=== PATIENT | female | born 1995 | race Caucasian/White ===

== ENCOUNTER 2017-10-02 11:28 | Inpatient (IN) | payer OTHER ==
[2017-10-02 12:37] VITALS: BMI 35.4
--- NOTE | 2017-10-02 15:44 | HP ---
Admission [facility] - [facility] Chief Complaint: REHAB TX FOR MARIJUANA DEPENDENCE Allergies/Adverse Reactions: Allergies Allergy/AdvReac Type Severity Reaction Status Date / Time No Known Allergies Allergy Verified 09/10/16 19:00 History of Present Illness: 22 Y/O H/FEMALE WITH A HX OF MARIJUANA DEPENDENCE SEEKING REHAB TX Exam Limitations: No Limitations - Ebola screening Have you traveled outside of the country in the last 21 days: No Have you had contact with anyone from an Ebola affected area: No Have you been sick,other than usual withdrawal symptoms: No Do you have a fever: No - Review of Systems Constitutional: Loss of Appetite EENT: reports: Tearing, Nose Congestion, Dental Problems (CAVITIES) Respiratory: reports: Shortness of Breath (HX ASTHMA), Wheezing Cardiac: reports: No Symptoms Reported GI: reports: No Symptoms Reported : reports: No Symptoms Reported Musculoskeletal: reports: Back Pain Integumentary: reports: No Symptoms Reported Neuro: reports: No Symptoms reported, Headache Endocrine: reports: No Symptoms Reported Hematology: reports: Anemia Psychiatric: reports: Orientated x3 Other Systems: Reviewed and Negative Patient History - Patient Medical History Hx Anemia: Yes ( PERIOD) Hx Asthma: Yes (ALBUTEROL IH PRN) Hx Cancer: No Hx Cardiac Disorders: No Hx Hypertension: No Hx Hypercholesterolemia: No HX Cerebrovascular Accident: No Hx Seizures: No Hx Diabetes: No Hx Genitourinary Disorders: Yes (UTI TX) Hx Sexually Transmitted Disorders: Yes (HX CHLAMYDIA TX) Hx Renal Disease (ESRD): No Hx Thyroid Disease: No Hx Human Immunodeficiency Virus (HIV): No (NEGATIVE HX) Hx Hepatitis C: No Hx Depression: No Hx Suicide Attempt: No (DENIES) Hx Bipolar Disorder: No Hx Schizophrenia: No - Patient Surgical History Past Surgical History: Yes Other Surgical History: D & C X 3 IN ( 2012,2016 X2) Anesthesia Reaction: No - Smoking Cessation Smoking history: Never smoked Family Disease History - Family Disease History Family Disease History: Diabetes: Grandparent (HYPERCHOLESTEROLEMIA-GM), Respiratory: Mother (ASTHMA), Other: Grandparent Admission Physical Exam [facility] - Vital Signs Vital Signs: Vital Signs - 24 hr 10/02/17 12:34 Temperature 97.8 F Pulse Rate 70 Respiratory 18 Rate Blood Pressure 133/77 - Physical General Appearance: Yes: Obese, Anxious HEENTM: Yes: EOMI, Normocephalic, AALIYAH, Pharynx Normal Respiratory: Yes: Chest Non-Tender, Lungs Clear, Normal Breath Sounds, No Respiratory Distress Neck: Yes: No masses,lesions,Nodules, Supple, Trachea in good position Breast: Yes: Breast Exam Deferred Cardiology: Yes: Regular Rhythm, Regular Rate, S1, S2 Abdominal: Yes: Normal Bowel Sounds, Non Tender, Flat Genitourinary: Yes: Other (N/C) Musculoskeletal: Yes: full range of Motion, Gait Steady Extremities: Yes: Normal Range of Motion, Non-Tender 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, Fully Oriented, Alert, Motor Strength 5/5 Integumentary: Yes: Dry, Warm Lymphatic: Yes: Within Normal Limits - Diagnostic (1) Cannabis dependence, uncomplicated Current Visit: Yes Status: Chronic (2) History of asthma Current Visit: Yes Status: Chronic Cleared for Admission [facility] - Detox or Rehab Claeared for Rehab Admission: Yes [facility] Breath Alcohol Content Breath Alcohol Content: 0 Urine Pregancy Test - Result Urine Test Results: Negative- NO Line Present Urine Drug Screen - Results Drug Screen Negative: No Urine Drug Screen Results: THC-Marijuana Inpatient Rehab Admission - Initial Determination Are CD services needed?: Yes Free of communicable disease: Yes Not in need of hospitalization: Yes - Rehab Admission Criteria Patient is meeting Inpatient Rehab admission criteria:: Yes
[2017-10-02] MEDS ORDERED: P-EPHED 60MG/TRIPROLIDI 2.5MG TABLET PO PRN (16:25)
[2017-10-02] MEDS ORDERED: MAGNESIUM CITRATE 300 ML BOTTLE PO PRN (16:25)
[2017-10-02] MEDS ORDERED: MENTHOL/PHENOL 1 EACH UD MM PRN (16:25)
[2017-10-02] MEDS ORDERED: IBUPROFEN 400 MG TABLET (FP) PO PRN (16:25)
[2017-10-02] MEDS ORDERED: guaiFENesin/D-METHORPHAN HB 10 ML UNIT-DOSE CUPS PO PRN (16:25)
[2017-10-02] MEDS ORDERED: ACETAMINOPHEN 325 MG TABLET (FP) PO PRN (16:25)
[2017-10-02] MEDS ORDERED: LOPERAMIDE HCL 2 MG CAPSULE PO PRN (16:25)
[2017-10-02] MEDS ORDERED: MAGNESIUM HYDROX 2400MG/30ML ORAL SUSPENSION 30 ML CUP PO PRN (16:25)
[2017-10-02] MEDS ORDERED: MAG HYDROX/AL HYDROX/SIMETH 30 ML UNIT-DOSE CUP PO PRN (16:25)
[2017-10-02] MEDS ORDERED: ALBUTEROL SO4 18 GM HFA INHALER IH PRN (16:27)
[2017-10-02] MEDS: THIAMINE HCL 100 MG TABLET (FP) PO SCH (21:29)
[2017-10-03 03:15] LABS: URINE APPEARANCE SLCLOUDY; URINE BILIRUBIN NEGATIVE (NEGATIVE); URINE BLOOD NEGATIVE (NEGATIVE); URINE COLOR YELLOW; URINE GLUCOSE (UA) NEGATIVE (NEGATIVE); URINE KETONE NEGATIVE (NEGATIVE); URINE LEUK ESTERASE NEGATIVE (NEGATIVE); URINE NITRITE NEGATIVE (NEGATIVE); URINE PROTEIN NEGATIVE (NEGATIVE); URINE UROBILINOGEN NEGATIVE mg/dL (0.2-1.0)
[2017-10-03] MEDS: PRENATAL VITAMINS W/ FOLIC ACID TABLET (FP) PO SCH (09:45)
[2017-10-03 15:07] LABS: HEMATOCRIT 41.8 % (32.4-45.2); HEMOGLOBIN 13.5 GM/dL (10.7-15.3); MCH 29.7 pg (25.7-33.7); MCHC 32.4 g/dl (32.0-36.0); MEAN CELL VOLUME 91.6 fl (80-96); PLATELET COUNT 275 K/MM3 (134-434); RBC 4.57 M/mm3 (3.60-5.2); RDW 14.5 % (11.6-15.6); WHITE BLOOD COUNT 9.1 K/mm3 (4.0-10.0)
[2017-10-03 15:13] LABS: CHLORIDE 104 mmol/L (98-107); POTASSIUM 4.1 mmol/L (3.5-5.1); SODIUM 137 mmol/L (136-145)
[2017-10-03 15:19] LABS: ALBUMIN 3.5 g/dl (3.4-5.0); ALK PHOS 68 U/L (45-117); ANION GAP 9 (8-16); BILIRUBIN,TOTAL 1.1 mg/dL (0.2-1.0); BLOOD UREA NITROGEN 10 mg/dL (7-18); CALCIUM 8.6 mg/dL (8.5-10.1); CO2 24 mmol/L (21-32); CREATININE 0.7 mg/dL (0.55-1.02); GLUCOSE,RANDOM 88 mg/dL (74-106); SGOT/AST 12 U/L (15-37); SGPT/ALT 19 U/L (12-78); TOT PROT 6.8 g/dl (6.4-8.2)
--- NOTE | 2017-10-03 15:19 | EKG ---
Test Reason : Blood Pressure : / mmHG Vent. Rate : 070 BPM Atrial Rate : 070 BPM P-R Int : 162 ms QRS Dur : 086 ms QT Int : 414 ms P-R-T Axes : 049 057 055 degrees QTc Int : 447 ms NORMAL SINUS RHYTHM WITH SINUS ARRHYTHMIA NORMAL ECG NO PREVIOUS ECGS AVAILABLE Confirmed by Casper Cosby MD ([id number]) on 10/03/2017 3:18:43 PM Referred By: Confirmed By:Casper Cosby MD
[2017-10-03 18:36] LABS: SICKLE CELL SCREEN NEGATIVE (NEGATIVE)
[2017-10-03] MEDS: THIAMINE HCL 100 MG TABLET (FP) PO SCH (21:30)
[2017-10-04] MEDS: PRENATAL VITAMINS W/ FOLIC ACID TABLET (FP) PO SCH (10:15)
--- NOTE | 2017-10-04 13:58 | HP ---
Psychiatrist Admission - Data Date of interview: 10/04/17 Admission source: Probation office. Identifying data: This is the first admsiion to [address] [place] [address] for this 22 years old H sincle female mother of 2 yo daughter(child resides with the patient's mother).Patient resides with family,works in [employer]. Medical History: H/O UTI,H/O BA. Psychiatric History: Denies psychiatric history. Physical/Sexual Abuse/Trauma History: No history of sexual/physical abuse reported. Vital Signs: Vital Signs - 24 hr 10/04/17 07:36 Temperature 98.2 F Pulse Rate 69 Respiratory 18 Rate Blood Pressure 141/85 Allergies/Adverse Reactions: Allergies Allergy/AdvReac Type Severity Reaction Status Date / Time No Known Allergies Allergy Verified 10/02/17 16:19 Date of last physical exam: 10/02/17 Concur with the findings of this exam: Yes - Substance Abuse/Tx History Hx Alcohol Use: No Hx Substance Use: No (marijuana since 15 yo,6 blunts daily) Hx Substance Use Treatment: Yes (never being in drug treatment before) Mental Status Exam - Mental Status Exam Alert and Oriented to: Time, Place, Person Cognitive Function: Grossly Intact Patient Appearance: Well Groomed Mood: Sad Affect: Labile Patient Behavior: Cooperative Speech Pattern: Clear Voice Loudness: Normal Thought Process: Goal Oriented Thought Disorder: Not Present Hallucinations: Denies Suicidal Ideation: Denies Homicidal Ideation: Denies Insight/Judgement: Fair Sleep: Fair Appetite: Good Gait/Station: Normal Psychiatric Findings - Problem List ([place] 1, 2,3) (1) [place] vaginitis Current Visit: Yes Status: Resolved (2) Cannabis dependence, uncomplicated Current Visit: Yes Status: Chronic (3) History of asthma Current Visit: Yes Status: Chronic - Initial Treatment Plan Initial Treatment Plan: Will monitor progress.
[2017-10-04] MEDS: THIAMINE HCL 100 MG TABLET (FP) PO SCH (21:33)
[2017-10-05] MEDS: PRENATAL VITAMINS W/ FOLIC ACID TABLET (FP) PO SCH (10:19)
[2017-10-05] MEDS ORDERED: COLLOIDAL OATMEAL 1 BAR EACH TP PRN (13:38)
[2017-10-05] MEDS: THIAMINE HCL 100 MG TABLET (FP) PO SCH (21:21)
[2017-10-06] MEDS: PRENATAL VITAMINS W/ FOLIC ACID TABLET (FP) PO SCH (09:51)
[2017-10-06] MEDS: THIAMINE HCL 100 MG TABLET (FP) PO SCH (21:24)
[2017-10-07] MEDS: PRENATAL VITAMINS W/ FOLIC ACID TABLET (FP) PO SCH (10:16)
[2017-10-07] MEDS: THIAMINE HCL 100 MG TABLET (FP) PO SCH (21:22)
[2017-10-08] MEDS: PRENATAL VITAMINS W/ FOLIC ACID TABLET (FP) PO SCH (09:51)
[2017-10-08] MEDS: THIAMINE HCL 100 MG TABLET (FP) PO SCH (21:33)
[2017-10-09] MEDS: PRENATAL VITAMINS W/ FOLIC ACID TABLET (FP) PO SCH (09:43)
[2017-10-09] MEDS: THIAMINE HCL 100 MG TABLET (FP) PO SCH (21:27)
[2017-10-10] MEDS: PRENATAL VITAMINS W/ FOLIC ACID TABLET (FP) PO SCH (10:28)
[2017-10-10] MEDS ORDERED: diphenhydrAMINE HCL 50 MG CAPSULE PO PRN (13:15)
[2017-10-10] MEDS: THIAMINE HCL 100 MG TABLET (FP) PO SCH (21:30)
[2017-10-11] MEDS: PRENATAL VITAMINS W/ FOLIC ACID TABLET (FP) PO SCH (09:55)
[2017-10-11] MEDS: THIAMINE HCL 100 MG TABLET (FP) PO SCH (21:28)
[2017-10-12] MEDS: PRENATAL VITAMINS W/ FOLIC ACID TABLET (FP) PO SCH (10:02)
[2017-10-12] MEDS: THIAMINE HCL 100 MG TABLET (FP) PO SCH (21:19)
[2017-10-13 07:08] VITALS: BP 134/90; PULSE 76; TEMP 97.4
== END 2017-10-13 06:30 | disposition home or self-care (01) | DRG 772 ==
LOC: YASAS 11:28 → Y3E 16:34
PROVIDERS: ADMIT Psychiatry & Neurology Psychiatry; ATTEND Psychiatry & Neurology Psychiatry
PROC: HZ42ZZZ Group Counseling for Substance Abuse Treatment, Cognitive-Behavioral (ICD-10-PCS; principal; 2017-10-02)
DX: F12.20 Cannabis dependence, uncomplicated (principal); B37.3 Candidiasis of vulva and vagina; Z87.09 Personal history of other diseases of the respiratory system
CPT/HCPCS: 36415; 80053; 81003; 85027; 85660; 86593; 93005; 93010

== ENCOUNTER 2018-01-26 01:49 | Emergency (ER) | payer OTHER ==
[2018-01-26 02:21] VITALS: BP 139/74; PULSE 82; TEMP 97.9; BMI 36.3
--- NOTE | 2018-01-26 02:37 | PDOC ---
Attending Attestation - HPI HPI: 01/26/18 03:17 The patient is a 22 year old female with a significant PMH of asthma who presents to the emergency department with 2 days of cold-like symptoms including cough, nasal congestion, and sore throat and 1 day of left ear pain. She describes her initial left ear pain as acute in onset last night with radiation to the left side of her face. She states she used a Q-tip to clean her ear out and subsequently developed a pressure like sensation in her left ear , 10/10 in severity. The patient notes her child has had similar symptoms at home. The patient denies chest pain or shortness of breath. She denies lightheadedness, headache, dizziness, or blurry vision. Allergies: NKA PCP: Dr. August Javed <Reese Patrick - Last Filed: 01/26/18 03:17> - Resident Resident Name: Martita Márquez - ED Attending Attestation I have performed the following: I have examined & evaluated the patient, The case was reviewed & discussed with the resident, I agree w/resident's findings & plan, Exceptions are as noted - Physicial Exam PE: 01/30/18 19:43 *Physical Exam General Appearance: Yes: Appropriately Dressed. No: Apparent Distress, Intoxicated HEENT: positive: EOMI, AALIYAH, Normal ENT Inspection, Normal Voice, TMs Normal, Pharynx Normal. negative: Pale Conjunctivae, Photophobia, Scleral Icterus (R), Scleral Icterus (L) Neck: positive: Trachea midline, Normal Thyroid, Supple. negative: Tender, Rigid, Carotid bruit, Stridor, Lymphadenopathy (R), Lymphadenopathy (L), Thyromegaly Respiratory/Chest: positive: Lungs Clear, Normal Breath Sounds. negative: Chest Tender, Respiratory Distress, Accessory Muscle Use, Labored Respiration, RES, Crackles, Rales, Rhonchi, Stridor, Wheezing, Dullness Cardiovascular: positive: Regular Rhythm, Regular Rate, S1, S2. negative: Edema , JVD, Murmur, Bradycardia, Tachycardia Vascular Pulses: Dorsalis-Pedis (R): 2+, Doralis-Pedis (L): 2+ Gastrointestinal/Abdominal: positive: Normal Bowel Sounds, Flat, Soft. negative : Tender, Organomegaly, Pulsatile Mass, Increased Bowel Sounds, Decreased BS, Distended, Guarding, Rebound, Hernia, Hepatomegaly, Spleenomegaly Lymphatic: negative: Adenopathy, Tenderness Musculoskeletal: positive: Normal Inspection. negative: CVA Tenderness, Decreased Range of Motion Extremity: positive: Normal Capillary Refill, Normal Inspection, Normal Range of Motion, Pelvis Stable. negative: Tender, Pedal Edema, Swelling, Erythema Integumentary: positive: Normal Color, Dry, Warm. 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 negative: EOM Palsy, Facial Droop, Sensory Deficit - Medical Decision Making 01/30/18 19:43 Pt treated and released <Julio Cesar Connelly - Last Filed: 01/30/18 19:43>
--- NOTE | 2018-01-26 02:37 | PDOC ---
History of Present Illness - General Chief Complaint: Ear Problem Stated Complaint: EARACHE,COUGH Time Seen by Provider: 01/26/18 02:26 History Source: Patient Exam Limitations: No Limitations - History of Present Illness Initial Comments: This is a 22 YOF with h/o well-controlled asthma who p/w 8/10 left ear pain as well as cold symptoms. The cold symptoms started with sore throat, congestion, and cough two days ago. Her child has been sick with the same symptoms at home. The left ear began itching tonight at about 9pm, and the patient felt like there was fluid in the ear canal, so she cleaned the ear out with water and a Q- tip. Soon after she cleaned it, the pain developed and has reached a 10/10 pressure in the left ear, similar to the ear infections she used to get as a child. She has had no recent ear infections. She notes that the pain is radiating to the left side of her face, but otherwise she denies any new symptoms (no fever, chills, nausea, vomiting, abnormal headache, vertigo, lightheadedness, blurry vision, or other symptoms. Past History - Past Medical History Allergies/Adverse Reactions: Allergies Allergy/AdvReac Type Severity Reaction Status Date / Time No Known Allergies Allergy Verified 01/26/18 02:19 Home Medications: Ambulatory Orders Albuterol Sulfate Inhaler - [Ventolin HFA Inhaler -] 2 inh PO Q4H PRN #1 inhaler 08/28/16 Amoxicillin - [Amoxicillin 500mg Capsule -] 1,000 mg PO TID #21 capsule Anemia: Yes ( PERIOD) Asthma: Yes (ON MDI PRN) Cancer: No Cardiac Disorders: No CVA: No COPD: No Diabetes: No GI Disorders: No Disorders: No HTN: No Hypercholesterolemia: No Kidney Stones: No Seizures: No Thyroid Disease: No - Reproductive History PID: No - Suicide/Smoking/Psychosocial Hx Smoking History: Never smoked Have you smoked in the past 12 months: No Information on smoking cessation initiated: No Hx Alcohol Use: No Drug/Substance Use Hx: No Substance Use Type: None Hx Substance Use Treatment: Yes (never being in drug treatment before) Review of Systems - Review of Systems Able to Perform ROS?: Yes Constitutional: No: Chills, Fever, Unexplained wgt Loss HEENTM: Yes: Ear Pain (left), Nose Congestion, Throat Pain Respiratory: Yes: Cough. No: Shortness of Breath Cardiac (ROS): No: Chest Pain, Palpitations ABD/GI: No: Constipated, Diarrhea, Nausea, Vomiting : No: Burning, Dysuria Musculoskeletal: No: Back Pain, Neck Pain Integumentary: No: Bruising, Rash Neurological: Yes: Headache. No: Numbness, Tingling, Weakness, Dizziness Endocrine: No: Unexplained Weight Gain, Unexplained Weight Loss *Physical Exam - Vital Signs Last Vital Signs Temp Pulse Resp BP Pulse Ox 97.9 F 82 20 139/74 99 01/26/18 02:20 01/26/18 02:20 01/26/18 02:20 01/26/18 02:20 01/26/18 02:20 - Physical Exam General Appearance: Yes: Nourished, Appropriately Dressed, Mild Distress, Other (alert and oriented but uncomfortable appearing, intermittently wincing in pain , obese, conversive) HEENT: positive: EOMI, AALIYAH, Normal Voice, Hearing Grossly Normal, Other (right TM wnl, left TM is bulging with opaque appearing fluid behind it, with small amount of EAC erythema). negative: Scleral Icterus (R), Scleral Icterus (L), Nasal Congestion Neck: positive: Trachea midline, Supple. negative: Tender, Rigid Respiratory/Chest: positive: Lungs Clear, Normal Breath Sounds. negative: Respiratory Distress, Crackles, Rhonchi, Stridor, Wheezing Cardiovascular: positive: Regular Rhythm, Regular Rate. negative: Murmur Gastrointestinal/Abdominal: positive: Normal Bowel Sounds, Soft. negative: Tender, Organomegaly, Pulsatile Mass, Guarding Musculoskeletal: positive: Normal Inspection. negative: Decreased Range of Motion, Vertebral Tenderness Extremity: positive: Normal Capillary Refill, Normal Inspection, Normal Range of Motion. negative: Tender, Cyanosis Integumentary: positive: Normal Color, Dry, Warm. 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 Initial Vital Signs Temp Pulse Resp BP Pulse Ox 97.9 F 82 20 139/74 99 01/26/18 02:20 01/26/18 02:20 01/26/18 02:20 01/26/18 02:20 01/26/18 02:20 Exam: Left TM bulging and with opaque fluid, mild erythema DDX IBNLT: Otitis media (serous versus infectious), otitis externa (c/f malignant OE), zoster (c/f HSV oticus, [place] syndrome), trauma, tympanic membrane rupture, foreign body, headache W/U ordered: None TX ordered: Tylenol, Amoxicillin Reassessment: Patient notes pain much improved and she feels comfortable going home. The Pt has gotten significant relief of symptoms with ED medications. Workup is not concerning for emergency-level pathology at this time. The Pt is appropriate for discharge with close outpatient follow up. E-Rx is sent to her pharmacy for amoxicillin course and she is given a dose here in the ED. They are comfortable with this plan and will follow up with their PCP in 1-3 days. Specific return precautions are discussed and they will come back to the ER if necessary. *DC/Admit/Observation/Transfer Diagnosis at time of Disposition: Viral URI Otitis media Qualifiers: Otitis media type: unspecified Chronicity: acute Qualified Code(s): H66.90 - Otitis media, unspecified, unspecified ear - Discharge Dispostion Disposition: HOME Condition at time of disposition: Stable Decision to Admit order: No - Prescriptions Prescriptions: Amoxicillin - [Amoxicillin 500mg Capsule -] 1,000 mg PO TID #21 capsule - Referrals Referrals: August Javed MD [Primary Care Provider] - - Patient Instructions Printed Discharge Instructions: Middle Ear Infection Additional Instructions: You were seen in the ER for ear pain. We did an exam and were able to see evidence of an ear infection. We gave a dose of antibiotic here in the ER and are sending an electronic prescription to your pharmacy for a course of antibiotic. After our assessment, we do not believe there is a medical emergency at this time, and we believe it is safe to go home. Please moss picker the antibiotics from the pharmacy and take the whole course, whether or not the symptoms resolve. Take Motrin and Tylenol as you need them for pain. Please follow up with your regular PCP doctor in 1-3 days. Call their clinic as soon as possible, tell them you were seen in the ER, and tell them you need an appointment. If there are any new or worsening symptoms, please come back to the ER at any time (24 hours a day). If the symptoms appear severe or life- threatening, please call 911 to have an ambulance take you to the ER. - Post Discharge Activity
[2018-01-26] MEDS ORDERED: IBUPROFEN 400 MG TABLET (FP) PO ONE ×2 (02:38→03:02)
[2018-01-26] MEDS ORDERED: AMOXICILLIN 500 MG CAPSULE (FP) PO ONE (02:40)
[2018-01-26] MEDS ORDERED: AMOXICILLIN 500 MG CAPSULE (FP) ONE (03:02)
== END 2018-01-26 02:30 | disposition home or self-care (01) ==
LOC: JER 01:49
DX: H66.90 Otitis media, unspecified, unspecified ear (principal); J06.9 Acute upper respiratory infection, unspecified
CPT/HCPCS: 99282-25

== ENCOUNTER 2018-11-13 00:58 | Emergency (ER) | payer OTHER ==
[2018-11-13 01:15] VITALS: PULSE 60; BMI 38.0
--- NOTE | 2018-11-13 02:16 | PDOC ---
History of Present Illness - General Chief Complaint: Nausea/Vomiting Stated Complaint: VOMITING Time Seen by Provider: 11/13/18 02:16 - History of Present Illness Initial Comments: 11/13/18 05:04 23-year-old female complaining of nausea and vomiting with epigastric abdominal pain for the last 2 days. Patient reports she was unable to tolerate any by mouth for the last 2 days. Denies diarrhea, abdominal cramping, chest pain, dizziness, urinary symptoms. Past History - Past Medical History Allergies/Adverse Reactions: Allergies Allergy/AdvReac Type Severity Reaction Status Date / Time No Known Allergies Allergy Verified 11/13/18 01:09 Home Medications: Ambulatory Orders Albuterol Sulfate Inhaler - [Ventolin HFA Inhaler -] 2 inh PO Q4H PRN #1 inhaler 08/28/16 Amoxicillin - [Amoxicillin 500mg Capsule -] 1,000 mg PO TID #21 capsule Anemia: Yes ( PERIOD) Asthma: Yes (ON MDI PRN) Cancer: No Cardiac Disorders: No CVA: No COPD: No Diabetes: No GI Disorders: No Disorders: No HTN: No Hypercholesterolemia: No Kidney Stones: No Seizures: No Thyroid Disease: No - Reproductive History PID: No - Immunization History Immunization Up to Date: Yes - Suicide/Smoking/Psychosocial Hx Smoking History: Never smoked Have you smoked in the past 12 months: No Hx Alcohol Use: No Drug/Substance Use Hx: No Substance Use Type: None Hx Substance Use Treatment: Yes (never being in drug treatment before) Abd/GI Specific PMHX - Complaint Specific PMHX Hepatitis: No Pancreatitis: No Review of Systems - Review of Systems Able to Perform ROS?: Yes Is the patient limited Albanian proficient: No Constitutional: No: Symptoms Reported, See HPI, Chills, Diaphoresis, Fever, Loss of Appetite, Malaise, Night Sweats, Weakness, Weight Stable, Unintentional Wgt. Loss, Unexplained wgt Loss, Other HEENTM: No: Symptoms Reported, See HPI, Eye Pain, Blurred Vision, Tearing, Recent change in vision, Double Vision, Cataracts, Ear Pain, Ocular Prothesis, Ear Discharge, Nose Pain, Nose Congestion, Tinnitus, Nose Bleeding, Hearing Loss , Throat Pain, Throat Swelling, Mouth Pain, Dental Problems, Difficulty Swallowing, Mouth Swelling, Other ABD/GI: Yes: Nausea, Vomiting, Abdominal cramping. No: Symptoms Reported, See HPI, Abdominal Distended, Abd. Pain w/ defecation, Blood Streaked Bowels, Constipated, Diarrhea, Difficulty Swallowing, Poor Appetite, Poor Fluid Intake, Rectal Bleeding, Indigestion, Tarry Stools, Other : No: Symptoms Reported, See HPI, Burning, Dysuria, Discharge, Frequency, Flank Pain, Hematuria, Incontinence, Pain, Urgency, Testicular Mass, Testicular Swelling, Lesions, Testicular Pain, Other *Physical Exam - Vital Signs Last Vital Signs Temp Pulse Resp BP Pulse Ox 97.7 F 60 18 145/76 99 11/13/18 01:08 11/13/18 01:08 11/13/18 01:08 11/13/18 01:08 11/13/18 01:08 - Physical Exam General Appearance: Yes: Appropriately Dressed Respiratory/Chest: positive: Lungs Clear, Normal Breath Sounds Cardiovascular: positive: Regular Rhythm, Regular Rate Gastrointestinal/Abdominal: positive: Tender (epigastric area), Soft, Increased Bowel Sounds Musculoskeletal: positive: Normal Inspection. negative: CVA Tenderness Extremity: positive: Normal Capillary Refill, Normal Inspection, Normal Range of Motion Integumentary: positive: Normal Color, Dry, Warm Neurologic: positive: Fully Oriented, Alert Moderate Sedation - Procedure Monitoring Vital Signs: Procedure Monitoring Vital Signs Temperature 97.7 F 11/13/18 01:08 Pulse Rate 60 11/13/18 01:08 Respiratory Rate 18 11/13/18 01:08 Blood Pressure 145/76 11/13/18 01:08 O2 Sat by Pulse Oximetry (%) 99 11/13/18 01:08 ED Treatment Course - LABORATORY CBC & Chemistry Diagram: 11/13/18 02:24 11/13/18 02:24 Progress Note - Progress Note Progress Note: A: gastroenteritis P: cbc cmp IVF zofran pepcid Medical Decision Making - Medical Decision Making 11/13/18 05:09 patient is drinking water. no vomiting no abdominal pain. will d/c home. pending UA 11/13/18 05:31 UA negative, will d.c home *DC/Admit/Observation/Transfer Diagnosis at time of Disposition: Gastroenteritis - Discharge Dispostion Disposition: HOME - Referrals Referrals: August Javed MD [Primary Care Provider] - - Patient Instructions Printed Discharge Instructions: DI for Vomiting -- Adult Additional Instructions: drink plenty of fluids start a BRAT ( bananas, rice apples toast) follow up with your doctor return to the ER if symptoms worsen - Post Discharge Activity
--- NOTE | 2018-11-13 02:23 | PDOC ---
*Physical Exam - Vital Signs Last Vital Signs Temp Pulse Resp BP Pulse Ox 97.7 F 60 18 145/76 99 11/13/18 01:08 11/13/18 01:08 11/13/18 01:08 11/13/18 01:08 11/13/18 01:08 ED Treatment Course - LABORATORY CBC & Chemistry Diagram: 11/13/18 02:24 11/13/18 02:24 Medical Decision Making - Medical Decision Making 11/13/18 02:23 Patient seen by the advanced practice provider under my direct supervision. Ancillary testing reviewed as necessary. I agree with plan as outlined by the advanced practice provider. *DC/Admit/Observation/Transfer Diagnosis at time of Disposition: Gastroenteritis - Discharge Dispostion Disposition: HOME - Referrals Referrals: August Javed MD [Primary Care Provider] - - Patient Instructions Printed Discharge Instructions: DI for Vomiting -- Adult Additional Instructions: drink plenty of fluids start a BRAT ( bananas, rice apples toast) follow up with your doctor return to the ER if symptoms worsen - Post Discharge Activity
[2018-11-13] MEDS ORDERED: ONDANSETRON 4 MG/2 ML VIAL ONE (02:26)
[2018-11-13] MEDS ORDERED: FAMOTIDINE 20 MG/50 ML IVPB 20 MG/50 ML MG IVPB ONE ×2 (02:27→02:29)
[2018-11-13] MEDS ORDERED: ONDANSETRON 4 MG/2 ML VIAL IVPB ONE (02:29)
[2018-11-13] MEDS ORDERED: SODIUM CHLORIDE 0.9% 500 ML INFUS.BAG IV ONE (02:29)
[2018-11-13 02:34] LABS: BASO % 0.5 % (0-2.0); EOS % 0.3 % (0-4.5); HEMATOCRIT 43.5 % (32.4-45.2); HEMOGLOBIN 15.2 GM/dL (10.7-15.3); LYMPH % 15.3 % (8-40); MCH 31.5 pg (25.7-33.7); MCHC 34.9 g/dl (32.0-36.0); MEAN CELL VOLUME 90.2 fl (80-96); MEAN PLT VOLUME 8.8 fl (7.5-11.1); MONO % 7.4 % (3.8-10.2); NEUT % 76.5 % (42.8-82.8); PLATELET COUNT 389 K/MM3 (134-434); RBC 4.83 M/mm3 (3.60-5.2); RDW 13.3 % (11.6-15.6); WHITE BLOOD COUNT 13.8 K/mm3 (4.0-10.0)
[2018-11-13 03:01] LABS: ALK PHOS 71 U/L (45-117); ANION GAP 10 MMOL/L (8-16); BILIRUBIN,TOTAL 0.7 mg/dL (0.2-1); BLOOD UREA NITROGEN 8 mg/dL (7-18); CALCIUM 9.2 mg/dL (8.5-10.1); CHLORIDE 106 mmol/L (98-107); CO2 22 mmol/L (21-32); CREATININE 0.9 mg/dL (0.55-1.3); GLUCOSE,RANDOM 128 mg/dL (74-106); LIPASE 91 U/L (73-393); POTASSIUM 3.8 mmol/L (3.5-5.1); SGOT/AST 19 U/L (15-37); SGPT/ALT 30 U/L (13-61); SODIUM 138 mmol/L (136-145); TOT PROT 7.8 g/dl (6.4-8.2)
[2018-11-13 05:10] LABS: URINE APPEARANCE SLCLOUDY; URINE BILIRUBIN NEGATIVE (<2.0 mg/dL); URINE COLOR DKYELLOW; URINE GLUCOSE (UA) NEGATIVE (NEGATIVE); URINE KETONE 2+ (NEGATIVE); URINE LEUK ESTERASE NEGATIVE (NEGATIVE); URINE NITRITE NEGATIVE (NEGATIVE); URINE PROTEIN 2+ (NEGATIVE)
[2018-11-13 05:11] LABS: HCG,QUALITATIVE URINE Negative
[2018-11-13 05:13] LABS: EPI CELLS MODERATE /HPF (FEW); URINE HYALINE CAST 1 /lpf; URINE MUCUS MANY
[2018-11-13 05:54] VITALS: BP 134/88; TEMP 99.1
== END 2018-11-13 05:54 | disposition home or self-care (01) ==
LOC: JER 00:58
PROC: 3E033GC Introduction of Other Therapeutic Substance into Peripheral Vein, Percutaneous Approach (ICD-10-PCS; principal; 2018-11-13)
PROC: 3E033GC Introduction of Other Therapeutic Substance into Peripheral Vein, Percutaneous Approach (ICD-10-PCS; 2018-11-13)
DX: K52.9 Noninfective gastroenteritis and colitis, unspecified (principal); J45.909 Unspecified asthma, uncomplicated
CPT/HCPCS: 36415; 80053; 81003; 81015; 83690; 84703; 85025; 96365; 96375; 99282-25

== ENCOUNTER 2018-11-15 13:30 | Observation (INO) | payer OTHER ==
[2018-11-15] MEDS ORDERED: FAMOTIDINE 20 MG/50 ML IVPB 20 MG/50 ML MG IVPB ONE (13:33)
[2018-11-15] MEDS ORDERED: SODIUM CHLORIDE 0.9% 1000 ML INFUS.BAG IV ONE ×2 (13:33→15:34)
[2018-11-15] MEDS ORDERED: ONDANSETRON 4 MG/2 ML VIAL IVPUSH ONE (13:33)
[2018-11-15] MEDS ORDERED: ONDANSETRON 4 MG/2 ML VIAL ONE (13:35)
--- NOTE | 2018-11-15 13:40 | PDOC ---
Attending Attestation - Resident Resident Name: Wilber Kirkpatrick - ED Attending Attestation I have performed the following: I have examined & evaluated the patient, The case was reviewed & discussed with the resident, I agree w/resident's findings & plan, Exceptions are as noted - HPI HPI: 11/15/18 14:48 The patient is a 23 year old female, with a significant PMH of asthma, who presents to the emergency department for evaluation of 5 days epigastric abdominal pain, nausea, and vomiting. She reports eating a pizza 4 days ago with extra cheese with pain beginning not too long after. She also notes 2 days of non bloody diarrhea. The patient denies chest pain, shortness of breath, headache and dizziness. Denies fever and chills. Denies dysuria, frequency, urgency and hematuria. Allergies: NKA Social history: Marijuana use. PCP: Dr. Javed - Physicial Exam PE: 11/15/18 16:29 agree with resident exam +RUQ ttp, neg murphys sign otherwise comfortable, non toxic - Medical Decision Making 11/15/18 16:29 23yo F hx marijuana dependence presents to the ED for the second time in 3 days for intractable vomiting and diarrhea. Vitals wnl. Exam with RUQ ttp and dry MM. Suspect gastroenteritis vs cannabinoid hyperemsis. Despite zofran, fluids, pt continues to be nauseous and refuses to drink states "I will vomit." Second liter fluids ordered. Other labs/US with no acute findings. In light of heavy MJ use (3 times per day), will try haldol for nausea control. QTC 457. Pt admitted to Dr. Holden for further mgmt. <Stephanie Nguyen - Last Filed: 11/15/18 16:33> Heart Score/ECG Review #1 11/15/18 16:33 Twelve-lead EKG was performed and reviewed by me. Sinus bradycardia, rate 48. Normal axis. No ST elevations or T-wave inversions. QTC 457. <Stephanie Nguyen - Last Filed: 11/15/18 16:33> Attestations - Attestations 11/15/18 16:27 Documentation prepared by Catia Nolasco, acting as medical fee clerk for Stephanie Nguyen MD. <Catia Nolasco - Last Filed: 02/21/19 16:27>
--- NOTE | 2018-11-15 13:41 | PDOC ---
History of Present Illness - General Stated Complaint: VOMITING Time Seen by Provider: 11/15/18 13:32 History Source: Patient Exam Limitations: No Limitations - History of Present Illness Initial Comments: 11/15/18 13:38 The patient is a 23F with a PMH of asthma who presents with 4 days of nausea, vomiting, and abdominal pain. The patient states that she may have eaten some "weird pizza" 5 days ago. She developed nausea that night with epigastric abdominal pain which she describes as a "nauseous" pain. She also has had diarrhea x 2 days. She denies any recent abx use. She states that she cannot keep anything down. She denies fever, chills, CP, SOB, dysuria, hematemesis, hematochezia. Past History - Past Medical History Allergies/Adverse Reactions: Allergies Allergy/AdvReac Type Severity Reaction Status Date / Time No Known Allergies Allergy Verified 11/15/18 13:33 Home Medications: Ambulatory Orders NK [No Known Home Medication] 11/15/18 Anemia: Yes ( PERIOD) Asthma: Yes (ON MDI PRN) Cancer: No Cardiac Disorders: No CVA: No COPD: No Diabetes: No GI Disorders: No Disorders: No HTN: No Hypercholesterolemia: No Kidney Stones: No Seizures: No Thyroid Disease: No - Reproductive History PID: No - Immunization History Immunization Up to Date: Yes - Suicide/Smoking/Psychosocial Hx Smoking History: Never smoked Have you smoked in the past 12 months: No Hx Alcohol Use: No Drug/Substance Use Hx: No Substance Use Type: None Hx Substance Use Treatment: Yes (never being in drug treatment before) Review of Systems - Review of Systems Able to Perform ROS?: Yes Comments:: 11/15/18 14:03 GENERAL/CONSTITUTIONAL: No fever or chills. No weakness. HEAD, EYES, EARS, NOSE AND THROAT: No change in vision. No ear pain or discharge. No sore throat. CARDIOVASCULAR: No chest pain, palpitations, or lightheadedness. RESPIRATORY: No cough, wheezing, shortness of breath, or hemoptysis. GASTROINTESTINAL: Positive for nausea, vomiting, diarrhea, and abdominal pain. GENITOURINARY: No dysuria, frequency, hematuria, or change in urination. MUSCULOSKELETAL: No joint or muscle swelling or pain. No neck or back pain. SKIN: No rash or lesions. NEUROLOGIC: No headache, numbness, tingling, focal weakness, loss of consciousness, or change in strength/sensation. Is the patient limited Citizen Of [place] proficient: No *Physical Exam - Physical Exam Comments: 11/15/18 14:05 GENERAL: Well developed, well nourished. Awake and alert. No acute distress. HEENT: Normocephalic, atraumatic. Hearing grossly normal. Moist mucous membranes. PERRLA, EOMI. No conjunctival pallor. Sclera are non-icteric. NECK: Supple. Full ROM. No JVD. CARDIOVASCULAR: Regular rate and rhythm. No murmurs, rubs, or gallops. PULMONARY: No evidence of respiratory distress. Lungs clear to auscultation bilaterally. No wheezing, rales or rhonchi. ABDOMINAL: Soft. Tender in her RUQ and epigastrium. + Sandra's. Non-distended. No rebound or guarding. GENITOURINARY: No CVA tenderness bilaterally. MUSCULOSKELETAL: Normal range of motion at all joints. No bony deformities or tenderness. EXTREMITIES: No cyanosis. No clubbing. No edema. No calf tenderness or swelling. SKIN: Warm and dry. Normal capillary refill. No rashes. No jaundice. NEUROLOGICAL: Alert, awake, appropriate. Cranial nerves 2-12 grossly intact. Normal speech. Gait is normal without ataxia. PSYCHIATRIC: Cooperative. Good eye contact. Appropriate mood and affect. ED Treatment Course - LABORATORY CBC & Chemistry Diagram: 11/15/18 13:01 11/15/18 13:01 - RADIOLOGY Radiology Studies Ordered: Category Date Time Status ABDOMEN US -LIMITED [US] Stat Ultrasound 11/15/18 13:33 Ordered Medical Decision Making - Medical Decision Making 11/15/18 14:06 The patient is a 23F with a PMH of asthma who presents to the ER with complaints of 5 days of nausea, vomiting, diarrhea, and abdominal pain with epigastric and RUQ pain. Will r/o pancreatitis and cholecystitis. Of note, the patient states that she smokes marijuana 3 times a day and her symptoms resolve when she's in a hot shower (possible marijuana hyperemesis). Pending labs and imaging. 11/15/18 15:38 CBC shows leukocytosis of 14, possibly reactive. CMP negative. US negative. PO challenging pt now. Pt states she is still nauseous. 11/15/18 16:21 UA negative. Upreg negative. Lipase negative. Pt not tolerating PO despite giving haldol for nausea. Will admit to Dr. Holden for intolerance of PO. Pt endorsed to Dr. Holden for admission. *DC/Admit/Observation/Transfer Diagnosis at time of Disposition: Nausea and vomiting Qualifiers: Vomiting type: unspecified Vomiting Intractability: intractable Qualified Code( s): R11.2 - Nausea with vomiting, unspecified - Discharge Dispostion Condition at time of disposition: Guarded Decision to Admit order: Yes - Referrals Referrals: August Javed MD [Primary Care Provider] - - Patient Instructions - Post Discharge Activity
[2018-11-15 13:48] LABS: BASO % 0.7 % (0-2.0); EOS % 0.1 % (0-4.5); HEMOGLOBIN 15.6 GM/dL (10.7-15.3); LYMPH % 15.7 % (8-40); MCH 31.5 pg (25.7-33.7); MCHC 35.5 g/dl (32.0-36.0); MEAN CELL VOLUME 88.9 fl (80-96); MEAN PLT VOLUME 8.2 fl (7.5-11.1); MONO % 9.1 % (3.8-10.2); NEUT % 74.4 % (42.8-82.8); PLATELET COUNT 352 K/MM3 (134-434); RBC 4.95 M/mm3 (3.60-5.2); RDW 13.2 % (11.6-15.6); WHITE BLOOD COUNT 14.2 K/mm3 (4.0-10.0)
[2018-11-15 14:18] LABS: ALBUMIN 4.2 g/dl (3.4-5.0); ALK PHOS 72 U/L (45-117); ANION GAP 12 MMOL/L (8-16); BILIRUBIN,TOTAL 1.2 mg/dL (0.2-1); BLOOD UREA NITROGEN 9 mg/dL (7-18); CALCIUM 9.2 mg/dL (8.5-10.1); CHLORIDE 100 mmol/L (98-107); CO2 24 mmol/L (21-32); CREATININE 0.9 mg/dL (0.55-1.3); GLUCOSE,RANDOM 89 mg/dL (74-106); POTASSIUM 3.5 mmol/L (3.5-5.1); SGOT/AST 11 U/L (15-37); SGPT/ALT 28 U/L (13-61); SODIUM 135 mmol/L (136-145); TOT PROT 7.7 g/dl (6.4-8.2)
[2018-11-15] MEDS ORDERED: HALOPERIDOL LACTATE 5 MG/ML IM PRN (15:42)
[2018-11-15 15:46] LABS: URINE APPEARANCE CLOUDY; URINE BILIRUBIN NEGATIVE (<2.0 mg/dL); URINE GLUCOSE (UA) NEGATIVE (NEGATIVE); URINE KETONE 2+ (NEGATIVE); URINE LEUK ESTERASE 1+ (NEGATIVE); URINE NITRITE NEGATIVE (NEGATIVE); URINE PROTEIN 1+ (NEGATIVE); URINE UROBILINOGEN 4.0 E.U/dl mg/dL (0.2-1.0)
[2018-11-15 15:47] LABS: LIPASE 197 U/L (73-393)
[2018-11-15 15:49] LABS: URINE COLOR DK YELLOW
[2018-11-15] MEDS ORDERED: HALOPERIDOL LACTATE 5 MG/ML ONE (15:50)
[2018-11-15 15:53] LABS: EPI CELLS MANY /HPF (FEW); URINE MUCUS FEW; YEAST RARE
[2018-11-15] MEDS ORDERED: ONDANSETRON 4 MG/2 ML VIAL IVPUSH PRN (16:21)
[2018-11-15] MEDS ORDERED: DEXTROSE 5%-0.45% SALINE 1,000 ML IV SCH (16:30)
--- NOTE | 2018-11-15 16:36 | HP ---
Admitting History and Physical - Primary Care Physician PCP: August Javed S - Admission Chief Complaint: nausea vomitting History of Present Illness: The patient is a 23 year old female, with a significant PMH of asthma, who presents to the emergency department for evaluation of 5 days epigastric abdominal pain, nausea, and vomiting. She reports eating a pizza 4 days ago with extra cheese with pain beginning not too long after. She also notes 2 days of non bloody diarrhea. she felt so weak with vomitting that she came to ER , no fever , abdominal sono: fatty liver History Source: Patient - Past Medical History Pulmonary: Yes: Asthma - Smoking History Smoking history: Never smoked Have you smoked in the past 12 months: No - Alcohol/Substance Use Hx Alcohol Use: No History of Substance Use: reports: None - Social History History of Recent Travel: No Home Medications - Allergies Allergies/Adverse Reactions: Allergies Allergy/AdvReac Type Severity Reaction Status Date / Time No Known Allergies Allergy Verified 11/15/18 13:33 - Home Medications Home Medications: Ambulatory Orders NK [No Known Home Medication] 11/15/18 Family Disease History - Family Disease History Family Disease History: Diabetes: Grandparent (HYPERCHOLESTEROLEMIA-GM), Respiratory: Mother (ASTHMA), Other: Grandparent Review of Systems - Review of Systems Constitutional: reports: Weakness Gastrointestinal: reports: Nausea, Vomiting Physical Examination Vital Signs: Vital Signs Temperature Pulse Rate 57 L 11/15/18 13:35 Respiratory Rate 18 11/15/18 13:35 Blood Pressure 140/70 11/15/18 13:35 O2 Sat by Pulse Oximetry (%) 95 11/15/18 13:35 Labs: CBC, BMP 11/15/18 13:01 11/15/18 13:01 Imaging - Results Ultrasound: Report Reviewed Problem List - Problems (1) Nausea and vomiting Assessment/Plan: ivf ppi gi consult ct scan npo lipase normal zofran leukocytosis secondary to stress of vomiting hyponatremia secondary to vomiting Code(s): R11.2 - NAUSEA WITH VOMITING, UNSPECIFIED Qualifiers: Vomiting type: unspecified Vomiting Intractability: intractable Qualified Code(s): R11.2 - Nausea with vomiting, unspecified
[2018-11-15 18:49] VITALS: BMI 36.6
[2018-11-15 22:41] VITALS: BP 111/50; PULSE 50; TEMP 97.6
[2018-11-16 07:25] LABS: BASO % 0.5 % (0-2.0); EOS % 0.7 % (0-4.5); HEMATOCRIT 41.8 % (32.4-45.2); HEMOGLOBIN 14.1 GM/dL (10.7-15.3); LYMPH % 38.6 % (8-40); MCH 30.7 pg (25.7-33.7); MCHC 33.8 g/dl (32.0-36.0); MEAN CELL VOLUME 90.7 fl (80-96); MEAN PLT VOLUME 8.2 fl (7.5-11.1); MONO % 10.8 % (3.8-10.2); NEUT % 49.4 % (42.8-82.8); PLATELET COUNT 292 K/MM3 (134-434); RDW 12.8 % (11.6-15.6); WHITE BLOOD COUNT 11.2 K/mm3 (4.0-10.0)
[2018-11-16 08:00] LABS: ALBUMIN 3.4 g/dl (3.4-5.0); ALK PHOS 59 U/L (45-117); AMYLASE 34 U/L (25-115); ANION GAP 7 MMOL/L (8-16); BLOOD UREA NITROGEN 7 mg/dL (7-18); CALCIUM 8.2 mg/dL (8.5-10.1); CHLORIDE 106 mmol/L (98-107); CO2 26 mmol/L (21-32); CREATININE 0.9 mg/dL (0.55-1.3); GLUCOSE,RANDOM 89 mg/dL (74-106); LIPASE 93 U/L (73-393); MAGNESIUM 2.3 mg/dL (1.8-2.4); PHOSPHOROUS 2.7 mg/dL (2.5-4.9); POTASSIUM 3.7 mmol/L (3.5-5.1); SGOT/AST 7 U/L (15-37); SGPT/ALT 25 U/L (13-61); SODIUM 138 mmol/L (136-145); TOT PROT 6.4 g/dl (6.4-8.2)
[2018-11-16] MEDS ORDERED: PANTOPRAZOLE SODIUM 40 MG VIAL IVPUSH SCH (08:00)
--- NOTE | 2018-11-16 08:59 | CON.GI ---
Consult Consult Specialty:: GI Reason for Consultation:: Abdominal pain with nausea and vomiting - History of Present Illness History of Present Illness: Patient is a 23 y/o female with past medical history of asthma. I was consulted for patient experiencing nasuea and vomiting associated with abdominal pain. Patient states experiencing epigastric and RUQ pain associated with nausea and vomiting and heartburn. Her pain was associated with fatty food intolerance. Abdominal US shows fatty liver versus hepatocellular disease. WBC is elevated 14.2, LFT normal. On examination patient complains of heartburn associated with early satiety and bloating. - History Source History Provided By: Patient Limitations to Obtaining History: No Limitations - Past Medical History Pulmonary: Yes: Asthma ...LMP: 11/02/18 ...: No - Alcohol/Substance Use Hx Alcohol Use: No History of Substance Use: reports: None - Smoking History Smoking history: Current some day smoker Have you smoked in the past 12 months: Yes Aproximately how many cigarettes per day: 1 - Social History History of Recent Travel: No Home Medications - Allergies Allergies/Adverse Reactions: Allergies Allergy/AdvReac Type Severity Reaction Status Date / Time No Known Allergies Allergy Verified 11/15/18 13:33 - Home Medications Home Medications: Ambulatory Orders NK [No Known Home Medication] 11/15/18 Family Disease History - Family Disease History Family Disease History: Diabetes: Grandparent (HYPERCHOLESTEROLEMIA-GM), Respiratory: Mother (ASTHMA), Other: Grandparent Review of Systems - Review of Systems Constitutional: reports: No Symptoms Eyes: reports: No Symptoms HENT: reports: No Symptoms Neck: reports: No Symptoms Cardiovascular: reports: No Symptoms Respiratory: reports: No Symptoms Gastrointestinal: reports: Abdominal Pain, Bloating, Nausea, Vomiting Genitourinary: reports: No Symptoms Breasts: reports: No Symptoms Reported Musculoskeletal: reports: No Symptoms Integumentary: reports: No Symptoms Neurological: reports: No Symptoms Endocrine: reports: No Symptoms Hematology/Lymphatic: reports: No Symptoms Psychiatric: reports: No Symptoms Physical Exam-GI Vital Signs: Vital Signs Temperature 97.6 F 11/15/18 20:21 Pulse Rate 50 L 11/15/18 20:21 Respiratory Rate 20 11/15/18 20:21 Blood Pressure 111/50 L 11/15/18 20:21 O2 Sat by Pulse Oximetry (%) 98 11/15/18 21:00 Constitutional: Yes: Well Nourished, No Distress, Calm Eyes: Yes: Conjunctiva Clear Neck: Yes: Supple Cardiovascular: Yes: Regular Rate and Rhythm Respiratory: Yes: CTA Bilaterally Gastrointestinal Inspection: Yes: WNL. No: Ascites, Distention, Hernia, Scars, Other ...Auscultate: Yes: Normoactive Bowel Sounds. No: Hyperactive Bowel Sounds, Hypoactive Bowel Sounds, No Bowel Sounds, Other ...Palpate: Yes: Tenderness (RUQ, epigastric, LUQ). No: Firm/Rigid, Guarding, Hepatomegaly, Mass, Pulsatile Mass, Soft, Splenomegaly, Tenderness, Epigastium, Tenderness, Rebound, Other ...Percussion: Yes: Other (high tympany). No: Dullness, Fluid Wave, Tympanitic Labs: CBC, BMP 11/16/18 06:00 11/16/18 06:00 Imaging - Results Ultrasound: Report Reviewed Problem List - Problems (1) RUQ abdominal pain Assessment/Plan: > RUQ, R/O chronic cholecystitis vs gallbladder dyskinesia R>Protonix IVPB daily, zofran and reglan PRN >start on ceftriaxone IV daily and falgyl IV > NS at 150cc/hr >maintain NPO status for now, consider upgrade diet to clear liquids tomorrow Code(s): R10.11 - RIGHT UPPER QUADRANT PAIN
--- NOTE | 2018-11-16 11:44 | EKG ---
Test Reason : Blood Pressure : / mmHG Vent. Rate : 048 BPM Atrial Rate : 048 BPM P-R Int : 154 ms QRS Dur : 090 ms QT Int : 512 ms P-R-T Axes : 021 038 049 degrees QTc Int : 457 ms SINUS BRADYCARDIA WITH SINUS ARRHYTHMIA WHEN COMPARED WITH ECG OF 02-OCT-2017 21:51, NO SIGNIFICANT CHANGE WAS FOUND Confirmed by LUIS DE LOS SANTOS MD ([id number]) on 11/16/2018 11:44:04 AM Referred By: Confirmed By:LUIS DE LOS SANTOS MD
--- NOTE | 2018-11-16 12:38 | DS ---
Physical Examination Vital Signs: Vital Signs Temperature 97.6 F 11/15/18 20:21 Pulse Rate 50 L 11/15/18 20:21 Respiratory Rate 20 11/15/18 20:21 Blood Pressure 111/50 L 11/15/18 20:21 O2 Sat by Pulse Oximetry (%) 98 11/15/18 21:00 Labs: CBC, BMP 11/16/18 06:00 11/16/18 06:00 Discharge Summary Reason For Visit: NAUSEA & VOMITTING Hospital Course: CP: August Javed - Admission Chief Complaint: nausea vomitting History of Present Illness: The patient is a 23 year old female, with a significant PMH of asthma, who presents to the emergency department for evaluation of 5 days epigastric abdominal pain, nausea, and vomiting. She reports eating a pizza 4 days ago with extra cheese with pain beginning not too long after. She also notes 2 days of non bloody diarrhea. she felt so weak with vomitting that she came to ER , patent left AMA Condition: Guarded - Instructions Referrals: August Javed MD [Primary Care Provider] - Disposition: AGAINST MEDICAL ADVICE - Home Medications Comprehensive Discharge Medication List: Ambulatory Orders NK [No Known Home Medication] 11/15/18 NK [No Known Home Medication] 11/15/18
== END 2018-11-16 08:51 | disposition left against medical advice (07) ==
LOC: JER 13:30 → JERBED 16:22 → J5S 18:26
PROVIDERS: ADMIT Student in an Organized Health Care Education/Training Program; ATTEND Student in an Organized Health Care Education/Training Program
PROC: 3E033GC Introduction of Other Therapeutic Substance into Peripheral Vein, Percutaneous Approach (ICD-10-PCS; principal; 2018-11-15)
PROC: 3E0337Z Introduction of Electrolytic and Water Balance Substance into Peripheral Vein, Percutaneous Approach (ICD-10-PCS; 2018-11-15)
PROC: 3E023GC Introduction of Other Therapeutic Substance into Muscle, Percutaneous Approach (ICD-10-PCS; 2018-11-15)
DX: R11.2 Nausea with vomiting, unspecified (principal); D72.829 Elevated white blood cell count, unspecified; J45.909 Unspecified asthma, uncomplicated
CPT/HCPCS: 36415; 76705-TC; 80053; 81003; 81015; 82150; 83690; 83735; 84100; 84703; 85025; 93005; 93010; 99284-25; G0378; J7030

== ENCOUNTER 2019-10-09 11:50 | Emergency (ER) | payer OTHER ==
[2019-10-09 11:57] VITALS: BP 127/59; PULSE 83; TEMP 97.9; BMI 35.2
--- NOTE | 2019-10-09 12:42 | PDOC ---
History of Present Illness - General Chief Complaint: Injury Stated Complaint: LT. KNEE PAIN/ FALL Time Seen by Provider: 10/09/19 11:54 - History of Present Illness Initial Comments: 10/09/19 12:39 24-year-old female without comorbidities presents for evaluation of left knee pain after twisting injury which occurred today Past History - Past Medical History Allergies/Adverse Reactions: Allergies Allergy/AdvReac Type Severity Reaction Status Date / Time No Known Allergies Allergy Verified 11/15/18 13:33 Home Medications: Ambulatory Orders NK [No Known Home Medication] 11/15/18 NK [No Known Home Medication] 11/15/18 Anemia: Yes ( PERIOD) Asthma: Yes Cancer: No Cardiac Disorders: No CVA: No COPD: No CHF: No Dementia: No Diabetes: No GI Disorders: No Disorders: No HTN: No Hypercholesterolemia: No Kidney Stones: No Liver Disease: No Seizures: No Thyroid Disease: No - Surgical History Abdominal Surgery: Yes () - Reproductive History PID: No - Immunization History Td Vaccination: Yes TDAP Vaccination: Yes Immunization Up to Date: Yes - Psycho Social/Smoking Cessation Hx Smoking Status: No Smoking History: Former smoker Have you smoked in the past 12 months: No Number of Cigarettes Smoked Daily: 2 Cigars Per Day: 0 Information on smoking cessation initiated: No 'Breaking Loose' booklet given: 11/15/18 Hx Alcohol Use: No Drug/Substance Use Hx: No Substance Use Type: None Hx Substance Use Treatment: Yes (went to rehab for marijuana in sep 2017) Review of Systems - Review of Systems Musculoskeletal: Yes: Joint Pain *Physical Exam - Vital Signs Last Vital Signs Temp Pulse Resp BP Pulse Ox 97.9 F 83 18 127/59 L 99 10/09/19 11:54 10/09/19 11:54 10/09/19 11:54 10/09/19 11:54 10/09/19 11:54 - Physical Exam 10/09/19 12:40 Left knee skin color and temperature normal range of motion 0-90 beyond that causes pain. She has no medial lateral joint line tenderness. No appreciable intra-articular effusion. Tenderness at the medial patella femoral facet lateral patellofemoral facet tenderness. No instability thigh and calf are soft and nontender normal hip and ankle range of motion and neurovascularly intact ED Treatment Course - RADIOLOGY Radiology Studies Ordered: Category Date Time Status KNEE 4 POS-LEFT [RAD] Stat Radiology 10/09/19 12:26 Completed Medical Decision Making - Medical Decision Making 10/09/19 12:40 X-rays of the left knee show no evidence of fracture trauma or destructive process. The patellofemoral subluxation most likely in a female follow-up with Ortho weight-bear as tolerated with crutches Discharge - Discharge Information Problems reviewed: Yes Clinical Impression/Diagnosis: Strain of left knee Condition: Stable Disposition: HOME - Admission No - Follow up/Referral Referrals: Jona Martinez DO [Staff Physician] - - Patient Discharge Instructions Additional Instructions: Reviewed home exercise program weight-bear as tolerated with crutches follow-up with orthopedics in 2 to 3 days without fail for further evaluation and treatment options. Tylenol Motrin for pain. Return to the emergency room should symptoms worsen. - Post Discharge Activity
== END 2019-10-09 13:17 | disposition home or self-care (01) ==
LOC: JERFT 11:50
DX: S83.92XA Sprain of unspecified site of left knee, initial encounter (principal); X58.XXXA Exposure to other specified factors, initial encounter; Y93.89 Activity, other specified; Y92.89 Other specified places as the place of occurrence of the external cause; Z87.891 Personal history of nicotine dependence
CPT/HCPCS: 73564-TC-LT-FY; 99282-25

== ENCOUNTER 2021-01-12 19:53 | Emergency (ER) | payer OTHER ==
[2021-01-12 20:11] VITALS: BMI 35.3
[2021-01-12] MEDS ORDERED: SODIUM CHLORIDE 1,000 ML IV STA (21:04)
[2021-01-12] MEDS ORDERED: METOCLOPRAMIDE HCL INJECTION 10 MG/2 ML VIAL IVPB ONE (21:04)
[2021-01-12] MEDS ORDERED: FAMOTIDINE 20 MG/50 ML IVPB 20 MG/50 ML MG IVPB ONE ×2 (21:04→21:31)
[2021-01-12] MEDS ORDERED: METOCLOPRAMIDE HCL INJECTION 10 MG/2 ML VIAL ONE (21:31)
[2021-01-12 22:15] LABS: BASO % 0.6 % (0-2.0); HEMATOCRIT 38.8 % (32.4-45.2); HEMOGLOBIN 13.1 GM/dL (10.7-15.3); LYMPH % 8.9 % (8-40); MCH 30.8 pg (25.7-33.7); MCHC 33.7 g/dl (32.0-36.0); MEAN CELL VOLUME 91.3 fl (80-96); MEAN PLT VOLUME 8.4 fl (7.5-11.1); MONO % 9.1 % (3.8-10.2); NEUT % 81.4 % (42.8-82.8); PLATELET COUNT 305 K/MM3 (134-434); RBC 4.25 M/mm3 (3.60-5.2); RDW 14.2 % (11.6-15.6); WHITE BLOOD COUNT 14.9 K/mm3 (4.0-10.0)
[2021-01-12 22:44] LABS: CALCIUM 9.8 mg/dL (8.5-10.1)
[2021-01-12 22:45] LABS: ALBUMIN 3.8 g/dl (3.4-5.0); BLOOD UREA NITROGEN 7.3 mg/dL (7-18)
[2021-01-12 22:48] LABS: CREATININE 0.7 mg/dL (0.55-1.3)
[2021-01-12 22:49] LABS: BILIRUBIN,TOTAL 0.8 mg/dL (0.2-1); TOT PROT 6.9 g/dl (6.4-8.2)
[2021-01-13 01:14] LABS: EPI CELLS >36 /uL (0-25.1); HYALINE CASTS 11 /uL (0-3.1); URINE APPEARANCE CLOUDY; URINE BACTERIA 1086 /uL (0-1359); URINE BILIRUBIN NEGATIVE (NEGATIVE); URINE COLOR DK YELLOW; URINE GLUCOSE (UA) NEGATIVE (NEGATIVE); URINE KETONE 2+ (NEGATIVE); URINE LEUK ESTERASE TRACE (NEGATIVE); URINE NITRITE NEGATIVE (NEGATIVE); URINE PROTEIN 1+ (NEGATIVE); URINE RBC 10 /uL (0-23.9); URINE WBC 64 /uL (0-25.8)
[2021-01-13] MEDS ORDERED: CEPHALEXIN MONOHYDRATE 500 MG CAPSULE (UD) PO ONE (01:21)
[2021-01-13] MEDS ORDERED: CEPHALEXIN MONOHYDRATE 500 MG CAPSULE (UD) ONE (01:51)
[2021-01-13 02:08] VITALS: BP 143/68; PULSE 60; TEMP 98.4
== END 2021-01-13 02:08 | disposition home or self-care (01) ==
LOC: JER 19:53
PROC: 3E033NZ Introduction of Analgesics, Hypnotics, Sedatives into Peripheral Vein, Percutaneous Approach (ICD-10-PCS; principal; 2021-01-12)
PROC: 3E033GC Introduction of Other Therapeutic Substance into Peripheral Vein, Percutaneous Approach (ICD-10-PCS; 2021-01-12)
PROC: 3E0337Z Introduction of Electrolytic and Water Balance Substance into Peripheral Vein, Percutaneous Approach (ICD-10-PCS; 2021-01-12)
DX: R10.11 Right upper quadrant pain (principal); N30.00 Acute cystitis without hematuria
CPT/HCPCS: 36415; 76705-TC; 80053; 81003; 83690; 84703; 85025; 99285-25

== ENCOUNTER 2021-06-05 11:33 | Emergency (ER) | payer OTHER ==
[2021-06-05 11:59] VITALS: BP 124/79; PULSE 63; TEMP 98; BMI 34.9
== END 2021-06-05 12:34 | disposition home or self-care (01) ==
LOC: JERFT 11:33
PROC: 0CQ0XZZ Repair Upper Lip, External Approach (ICD-10-PCS; principal; 2021-06-05)
DX: S01.512A Laceration without foreign body of oral cavity, initial encounter (principal)
CPT/HCPCS: 99282-25

== ENCOUNTER 2021-06-10 17:54 | Emergency (ER) | payer OTHER ==
[2021-06-10 18:15] VITALS: BP 143/79; PULSE 81; TEMP 98; BMI 32.8
== END 2021-06-10 18:33 | disposition home or self-care (01) ==
LOC: JER 17:54
DX: Z48.02 Encounter for removal of sutures (principal)
CPT/HCPCS: 99281-25

== ENCOUNTER 2024-04-19 09:11 | Emergency (ER) | payer OTHER ==
[2024-04-19 09:20] VITALS: BP 127/80; PULSE 55; RESP 18; TEMP 98.4; BMI 38.5
[2024-04-19] MEDS ORDERED: ACETAMINOPHEN INJECTION 100 ML IVPB ONE (09:52)
[2024-04-19] MEDS ORDERED: ONDANSETRON 4 MG/2 ML VIAL ONE (09:52)
[2024-04-19] MEDS: ACETAMINOPHEN 1000 MG/100 ML BAG IVPB ONE (10:06)
[2024-04-19] MEDS: ONDANSETRON 4 MG/2 ML VIAL IVPUSH ONE (10:06)
[2024-04-19] MEDS: SODIUM CHLORIDE 0.9% 500 ML INFUS.BAG IV ONE (10:06)
[2024-04-19 10:14] LABS: BASO % 0.8 % (0-2.0); EOS % 0.2 % (0-4.5); HEMATOCRIT 44.6 % (32.4-45.2); HEMOGLOBIN 15.4 GM/dL (10.7-15.3); LYMPH % 18.7 % (8-40); MCHC 34.5 g/dl (32.0-36.0); MEAN PLT VOLUME 7.7 fl (7.5-11.1); MONO % 10.2 % (3.8-10.2); NEUT % 70.1 % (42.8-82.8); PLATELET COUNT 351 10^3/uL (134-434); RBC 5.31 M/mm3 (3.60-5.2); WHITE BLOOD COUNT 13.1 K/mm3 (4.0-10.0)
[2024-04-19 10:35] LABS: POTASSIUM 3.4 mmol/L (3.5-5.1)
[2024-04-19 10:37] LABS: CALCIUM 8.9 mg/dL (8.5-10.1)
[2024-04-19 10:38] LABS: ALBUMIN 3.8 g/dl (3.4-5.0); BLOOD UREA NITROGEN 7.2 mg/dL (7-18)
[2024-04-19 10:41] LABS: CREATININE 0.8 mg/dL (0.55-1.3)
[2024-04-19 10:42] LABS: BILIRUBIN,TOTAL 1.1 mg/dL (0.2-1); TOT PROT 7.7 g/dl (6.4-8.2)
[2024-04-19 11:36] LABS: EPI CELLS 9 /uL (0-25.1); HYALINE CASTS 0 /uL (0-3.1); URINE APPEARANCE CLEAR; URINE BACTERIA 174 /uL (0-1359); URINE BILIRUBIN NEGATIVE (NEGATIVE); URINE COLOR YELLOW; URINE GLUCOSE (UA) NEGATIVE (NEGATIVE); URINE KETONE 2+ (NEGATIVE); URINE LEUK ESTERASE NEGATIVE (NEGATIVE); URINE NITRITE NEGATIVE (NEGATIVE); URINE PROTEIN NEGATIVE (NEGATIVE); URINE RBC 6 /uL (0-23.9); URINE WBC 8 /uL (0-25.8)
[2024-04-19] MEDS ORDERED: MAG HYDROX/AL HYDROX/SIMETH 30 ML UNIT-DOSE CUP ONE (12:16)
[2024-04-19] MEDS ORDERED: POTASSIUM CHLORIDE ORAL LIQUID 20 MEQ/15 ML ONE (12:16)
[2024-04-19] MEDS ORDERED: POTASSIUM CHLORIDE TABS 20 MEQ TABLET.ER (FP) PO ONE (12:19)
[2024-04-19] MEDS: POTASSIUM CHLORIDE ORAL LIQUID 20 MEQ/15 ML PO ONE (12:36)
[2024-04-19] MEDS: POTASSIUM CHLORIDE TABS 20 MEQ TABLET.ER (FP) PO ONE (12:36)
[2024-04-19] MEDS: MAG HYDROX/AL HYDROX/SIMETH 30 ML UNIT-DOSE CUP PO ONE (12:36)
== END 2024-04-19 14:58 | disposition home or self-care (01) ==
LOC: JER 09:11
PROC: 3E033NZ Introduction of Analgesics, Hypnotics, Sedatives into Peripheral Vein, Percutaneous Approach (ICD-10-PCS; principal; 2024-04-19)
PROC: 3E033GC Introduction of Other Therapeutic Substance into Peripheral Vein, Percutaneous Approach (ICD-10-PCS; 2024-04-19)
DX: A08.4 Viral intestinal infection, unspecified (principal); R11.2 Nausea with vomiting, unspecified; R19.7 Diarrhea, unspecified
CPT/HCPCS: 36415; 76705-TC; 80053; 81003; 83690; 84703; 85025; 87086; 93005; 93010; 99285-25; J0131